=== PATIENT | female | born 1990 | race African-American/Black ===

== ENCOUNTER 2024-05-14 11:49 | Inpatient (IN) | payer SELFPAY ==
[~2024-05-14 11:49] MED LIST: Iopamidol-370 76% 500 ML MDV (1 ML CHARGE) ONE
[2024-05-14 12:40] LABS: Bacteria/HPF None Seen HPF (None Seen); Bilirubin Negative (Negative); Blood, Urine 3+ (Negative); CAUTI Indications for Culture Pelvic or flank pain; Clarity Turbid (Clear); Glucose, Urine (Dipstick) Normal (Negative); Ketone, Urine Greater than 150 mg/dL (Negative); Leukocyte Negative Leu/uL (Negative); Nitrite Negative (Negative); Protein, Urine (Dipstick) 50 mg/dL (Neg-Trace); RBC/HPF 0-3 HPF (0-3); Specific Gravity, Urine 1.025 (1.002-1.036); pH, Urine 5.5 (5.0-9.0)
[2024-05-14 12:43] LABS: Urine Culture Reflex Yes Yes
[2024-05-14 12:55] LABS: Hematocrit 37.3 % (36.0-47.0); Hemoglobin 12.4 g/dL (12.0-16.0); Mean Corpuscular HGB CONC 33.2 g/dL (32.0-36.0); Mean Corpuscular Hemoglobin 29.7 pg (27.0-31.0); Mean Corpuscular Volume 89.4 fL (78.0-98.0); Platelet Count 278 10x3/uL (130-400); RBC Distribution Width 13.5 % (11.5-14.5); Red Blood Cell (RBC) Count 4.17 mill/uL (4.20-5.40)
[2024-05-14 13:03] LABS: BHCG - Serum Negative (NEGATIVE); Pregs Control Background? CLEAR/WHITE (CLR/WHITE); Pregs Control Bar Appear? YES (CONTROL BAR)
[2024-05-14 13:12] LABS: ALT (SGPT) 12 U/L (8-55); AST (SGOT) 13 U/L (5-34); Albumin 3.6 g/dL (3.5-5.0); Alkaline Phosphatase 71 U/L (40-110); Anion Gap 19 mmol/L (10-20); BUN (Urea Nitrogen) 8 mg/dL (7.0-18.7); Bilirubin, Total 1.3 mg/dL (0.2-1.2); Calc. Creatinine Clearance 0 mL/min (70-130); Calcium 9.7 mg/dL (7.8-10.44); Carbon Dioxide 16 mmol/L (22-29); Chloride 101 mmol/L (98-107); Estimated GFR 110; Globulin 4.6 g/dL (2.4-3.5); Glucose 109 mg/dL (70-105); Lipase 6 U/L (8-78); Potassium 3.7 mmol/L (3.5-5.1); Protein, Total 8.2 g/dL (6.0-8.3); Sodium 132 mmol/L (136-145)
[2024-05-14 13:17] LABS: Anisocytosis SLIGHT = 6-15 cells HPF (0-5); Band 34 % (5-11); Large Platelets 2.9 % (0-5); Lymphocytes 3 % (21-51); Monocytes 2 % (0-10); Neutrophil 60 % (42-75); Platelet Adequacy Comment Platelets Normal
[2024-05-14] MEDS ORDERED: Morphine 4 MG/ML VIAL ONE (13:41)
[2024-05-14] MEDS ORDERED: Ondansetron PF 4 MG/2 ML Vial ONE (13:41)
[2024-05-14] MEDS ORDERED: Piperacillin/Tazobactam 4.5 GM VIAL ONE (13:41)
[2024-05-14] MEDS ORDERED: Sodium Chloride 0.9% 100 ML ONE (13:41)
[2024-05-14] MEDS ORDERED: Ketorolac Tromethamine 30 MG (1 mL) VIAL ONE (13:43)
[2024-05-14] MEDS ORDERED: Lorazepam 2 MG/ML VIAL IM PRN (15:43)
[2024-05-14] MEDS ORDERED: Lorazepam 1 MG TAB PO PRN (15:43)
[2024-05-14] MEDS ORDERED: Electrolyte Replacement Protocol 1 EACH FS PRN (15:45)
[2024-05-14 16:32] LABS: Bilirubin, Direct 0.6 mg/dL (0.1-0.3); Magnesium 1.6 mg/dL (1.6-2.6); Phosphorus 3.2 mg/dL (2.3-4.7)
[2024-05-14] MEDS: Acetaminophen 325 MG TAB PO SCH (16:59)
[2024-05-14] MEDS: Sodium Chloride 0.9% 1,000 ML IV SCH (16:59)
[2024-05-14] MEDS: Thiamine HCl 200 MG/2 ML VIAL SLOW IVP SCH (17:00)
[2024-05-14 17:08] VITALS: BMI 19.1
[2024-05-14] MEDS: Famotidine 20 MG TAB PO SCH (20:00)
[2024-05-14] MEDS: Ondansetron ODT 4 MG TAB PO PRN (20:38)
[2024-05-14] MEDS: Loperamide HCl 2 MG CAP PO PRN (20:38)
[2024-05-14] MEDS ORDERED: Ciprofloxacin Lactate/D5W 400 MG in Premix 1 BAG IVPB SCH (21:00)
[2024-05-14] MEDS ORDERED: metroNIDAZOLE 500 MG in Premix 1 BAG IVPB SCH (22:00)
[2024-05-14] MEDS: Magnesium 2 GM/50 ML(in water) 2 GM in Premix 1 BAG IVPB SCH (23:23)
[2024-05-15 05:50] LABS: Hematocrit 29.8 % (36.0-47.0); Hemoglobin 9.6 g/dL (12.0-16.0); Mean Corpuscular HGB CONC 32.2 g/dL (32.0-36.0); Mean Corpuscular Hemoglobin 29.9 pg (27.0-31.0); Mean Corpuscular Volume 92.8 fL (78.0-98.0); Mean Platelet Volume 11.4 fL (7.4-10.4); Platelet Count 225 10x3/uL (130-400); RBC Distribution Width 13.6 % (11.5-14.5); Red Blood Cell (RBC) Count 3.21 mill/uL (4.20-5.40)
[2024-05-15 06:09] LABS: Anion Gap 11 mmol/L (10-20); BUN (Urea Nitrogen) 9 mg/dL (7.0-18.7); Calc. Creatinine Clearance 87 mL/min (70-130); Calcium 7.8 mg/dL (7.8-10.44); Carbon Dioxide 16 mmol/L (22-29); Chloride 112 mmol/L (98-107); Estimated GFR 118; Glucose 75 mg/dL (70-105); Potassium 4.4 mmol/L (3.5-5.1); Sodium 135 mmol/L (136-145)
[2024-05-15 08:08] LABS: Anisocytosis SLIGHT = 6-15 cells HPF (0-5); Band 20 % (5-11); Burr Cells MODERATE= 6-15 cells HPF (0-1); Lymphocytes 4 % (21-51); Monocytes 7 % (0-10); Neutrophil 68 % (42-75); Platelet Adequacy Comment Platelets Normal
[2024-05-15] MEDS: Multivit, Therapeutic 1 TAB PO SCH (08:17)
[2024-05-15] MEDS: Folic Acid 1 MG TAB PO SCH (08:17)
[2024-05-15] MEDS: Sodium Chloride 0.9% 1,000 ML IV SCH (12:57)
[2024-05-15] MEDS: Ondansetron PF 4 MG/2 ML Vial IVP PRN (12:58)
[2024-05-15 13:05] LABS: Campy jejuni + coli by PCR Negative (Negative); STEC Shiga Toxin 1+2 Negative (Negative); Salmonella spp. by PCR Negative (Negative); Shigella spp + EIEC by PCR Negative (Negative)
[2024-05-15] MEDS: Morphine 2 MG/ML VIAL SLOW IVP PRN (13:13)
[2024-05-15] MEDS ORDERED: Lorazepam 1 MG TAB PO PRN (15:43)
[2024-05-15] MEDS: Ciprofloxacin Lactate/D5W 400 MG in Premix 1 BAG IVPB SCH (20:41)
[2024-05-16 06:25] LABS: Iron 10 ug/dL (50-170); Iron Binding Capacity, Total 243 mcg/dL (265-497)
[2024-05-16 08:26] VITALS: BP 114/75; TEMP 98.3
[2024-05-16 08:50] LABS: #Basophils Less than 0.03 10x3/uL (0.0-0.2); %Basophils 0.2 % (0.0-1.0); %Eosinophils 1.7 % (0.0-10.0); %Monocytes 5.8 % (0.0-10.0); %Neutrophils 80.5 % (42.0-75.0); Hematocrit 26.1 % (36.0-47.0); Hemoglobin 8.5 g/dL (12.0-16.0); Mean Corpuscular HGB CONC 32.6 g/dL (32.0-36.0); Mean Corpuscular Hemoglobin 29.4 pg (27.0-31.0); Mean Corpuscular Volume 90.3 fL (78.0-98.0); Mean Platelet Volume 10.9 fL (7.4-10.4); Platelet Count 237 10x3/uL (130-400); RBC Distribution Width 13.5 % (11.5-14.5); Red Blood Cell (RBC) Count 2.89 mill/uL (4.20-5.40)
[2024-05-16] MEDS: Thiamine 100 MG TAB PO SCH (09:32)
[2024-05-16 09:37] LABS: Anion Gap 8 mmol/L (10-20); BUN (Urea Nitrogen) 4 mg/dL (7.0-18.7); Calc. Creatinine Clearance 104 mL/min (70-130); Calcium 7.8 mg/dL (7.8-10.44); Carbon Dioxide 16 mmol/L (22-29); Chloride 114 mmol/L (98-107); Estimated GFR 123; Glucose 71 mg/dL (70-105); Potassium 3.4 mmol/L (3.5-5.1); Sodium 135 mmol/L (136-145)
[2024-05-16] MEDS: Potassium Chloride 20 MEQ TAB PO SCH (13:11)
[2024-05-16] MEDS: Ferrous Sulfate 325 MG TAB PO SCH (15:08)
[2024-05-16] MEDS ORDERED: Lorazepam 1 MG TAB PO PRN (15:43)
[2024-05-17] MEDS ORDERED: Ferrous Sulfate 325 MG TAB PO SCH (08:00)
[2024-05-17] MEDS ORDERED: Lorazepam 0.5 MG TAB PO PRN (15:43)
[2024-05-17] MEDS ORDERED: Thiamine 100 MG TAB PO SCH (15:45)
== END 2024-05-16 16:04 | disposition home or self-care (01) | DRG 872 ==
LOC: ERS 11:49 → T4-A 16:26
PROVIDERS: ADMIT Internal Medicine; ATTEND Internal Medicine
DX: A41.9 Sepsis, unspecified organism (principal); E87.1 Hypo-osmolality and hyponatremia; F10.10 Alcohol abuse, uncomplicated; K52.9 Noninfective gastroenteritis and colitis, unspecified; F12.10 Cannabis abuse, uncomplicated; R11.2 Nausea with vomiting, unspecified; D64.9 Anemia, unspecified; E61.1 Iron deficiency
CPT/HCPCS: 36415; 71045; 74177; 80048; 80053; 81001; 82248; 82728; 83540; 83550; 83605; 83690; 83735; 84100; 84703; 85025; 86141; 87040; 87086; 87324; 87449; 87505; 93005; J0744; J1885; J2270; J2272; J2405; J2543; J3411; J3475; J3490; J7050; Q0162; Q9967